=== PATIENT | male | born 1940 | race Hispanic/Latino ===

== ENCOUNTER → 2018-04-16 | Day surgery (SDC) | payer OTHER ==
[2018-04-08 15:20] LABS: BASOPHILS # (AUTO) 0.1 (0.0-0.1); BASOPHILS % 0.6 % (0.0-1.0); EOSINOPHILS # (AUTO) 0.2 (0.0-0.4); EOSINOPHILS % 2.6 % (0.0-6.0); HEMATOCRIT 44.8 % (38.2-49.6); HEMOGLOBIN 14.7 g/dL (14.0-18.0); LYMPHOCYTES # (AUTO) 1.9 (1.0-3.2); LYMPHOCYTES % 22.6 % (18.0-39.1); MEAN CORPUSCULAR HEMOGLOBIN 29.8 pg (28-32); MEAN CORPUSCULAR HGB CONC 32.8 g/dL (31-35); MEAN CORPUSCULAR VOLUME 90.7 fL (81-99); MONOCYTES # (AUTO) 0.7 (0.2-0.8); MONOCYTES % 8.3 % (4.4-11.3); NEUTROPHILS # (AUTO) 5.4 (2.1-6.9); NEUTROPHILS % 65.5 % (38.7-80.0); PLATELET COUNT 213 x10e3/uL (140-360); RED BLOOD COUNT 4.94 x10e6/uL (4.3-5.7); RED CELL DISTRIBUTION WIDTH 12.5 % (11.7-14.4)
[2018-04-08 15:33] LABS: ANION GAP 12.5 mmol/L (8-16); BLOOD UREA NITROGEN 25 mg/dL (7-26); BUN/CREATININE RATIO 22 (6-25); CALCIUM 10.7 mg/dL (8.4-10.2); CARBON DIOXIDE 29 mmol/L (22-29); CHLORIDE 106 mmol/L (98-107); CREATININE, SERUM 1.16 mg/dL (0.72-1.25); EST GLOMERULAR FILTRATION RATE > 60 ML/MIN (60-); GLUCOSE 99 mg/dL (74-118); POTASSIUM 5.5 mmol/L (3.5-5.1); SODIUM 142 mmol/L (136-145)
[~2018-04-16] MED LIST: ASPIR 8181 MG PO; ATORVASTATIN CA20 MG PO; CHONDR SU A NA/HYALUR SOD 1 EACH KIT IO ONE; CYCLOPENTOLATE HCL 2% OPTH SOLN 2 ML BTL OP ONE; EPINEPHRINE HCL INJ 1 MG/ML AMP ONE; FENTANYL CITRATE/PF 100MCG/2 ML INJ ONE; FINASTERIDE5 MG PO; GATIFLOXACIN(OPTH) 5 ML LIQD ONE; LIDOCAINE 2%/ EPINEPHRINE 20ML MDV ONE; LIDOCAINE HCL-PF 4% 40 MG/1 ML 5ML AMP ONE; METOPROLOL SUCC25 MG PO; MIDAZOLAM HCL 2 MG/2 ML VIAL ONE; PHENYLEPHRINE HCL 2 ML DROPS ONE; PILOCARPINE HCL(OPTH) 15 ML LIQD ONE; POVIDONE IODINE 5% (OPTH) 30 ML BTL ONE; PROPOFOL IV EMULSION 10 MG/ML 20 ML VIAL ONE; TOBRAMYCIN/DEXAMETHASONE(OPTH) 3.5 GM TUBE ONE; ZESTRIL20 MG PO
--- OUTSIDE RECORDS SUMMARY | 2018-04-16 05:48 | XMS REPORT | Continuity of Care Document ---
Author Author [facility] Interface Address Unknown Phone Unavailable Problems Problem Status Onset Date Classification Date Reported Comments Source Idiopathic gout, left ankle and foot 06/05/2017 09/06/2017 [facility] Acute gout 05/31/2017 09/06/2017 [facility] GOUT Active 05/31/2017 [facility] Discharge Diagnosis: Gout attack 04/25/2016 04/28/2016 [facility] FOOT PAIN Active 04/25/2016 [facility] Discharge Diagnosis: Low back pain 11/25/2015 11/28/2015 [facility] BACK PAIN Active 11/25/2015 [facility] Discharge Diagnosis: Acute gout 10/25/2015 10/28/2015 [facility] LEG PAIN Active 10/25/2015 [facility] Discharge Diagnosis: Sciatica 09/10/2014 09/13/2014 [facility] HIP PAIN Active 09/10/2014 [facility] Body mass index 30+ - obesity<sup>4</sup> Active 10/05/2013 Problem 11/04/2017 Data migrated from [employer] on 10/01/14. [facility] Tobacco user<sup>9</sup> Active 10/05/2013 Problem 04/28/2016 Data migrated from [employer] on 10/01/14. [facility] Discharge Diagnosis: allergic reaction 07/25/2013 07/27/2013 [facility] ITCHING Active 07/25/2013 [facility] Raised prostate specific antigen<sup>8</sup> Active 06/08/2013 Problem 11/04/2017 Data migrated from [employer] on 10/01/14. [facility] Acute upper respiratory infection<sup>1, 2</sup> Resolved 05/25/2013 Problem 11/04/2017 Data migrated from [employer] on 11/18/14. [facility] Benign essential hypertension<sup>3</sup> Active 05/25/2013 Problem 11/04/2017 Data migrated from [employer] on 10/01/14. [facility] Chronic constipation<sup>5</sup> Active 05/25/2013 Problem 11/04/2017 Data migrated from [facility] on 10/01/14. [facility] Gout Active Problem 11/04/2017 [facility] H/O: gastrointestinal disease<sup>6, 7</sup> Resolved Problem 11/04/2017 Data migrated from [facility] on 11/18/14. [facility] Hyperlipidemia Active Problem 11/04/2017 [facility] Hypertension Resolved Problem 11/04/2017 [facility] Injury of left toe Active Problem 11/04/2017 [facility] Knee pain Active Problem 11/04/2017 [facility] Osteoarthritis Active Problem 11/04/2017 [facility] Diabetes mellitus type 2, controlled Active Problem 11/04/2017 [facility] Prediabetes Active Problem 11/28/2015 [facility] Underdosing of drugs affecting uric acid metabolism, initial encounter 09/06/2017 [facility] Patient's intentional underdosing of medication regimen for other reason 09/06/2017 [facility] Essential hypertension 09/06/2017 [facility] Type 2 diabetes mellitus without complications 09/06/2017 [facility] Medications Medication Details Route Status Patient Instructions Ordering Provider Order Date Source [employer] ULTRA THIN LANCETS 30G See Instructions, # 100 unknown unit, Refill(s) 11, USE DIRECTED, [id number] Active 07/01/2017 [facility] predniSONE 20 mg oral tablet See Special Instructions, PO, Daily, 4 day regimen: Day 1 - 40 mg (2 tabs) Day 2 - 30 mg (1 1/2 tabs) Day 3 - 20 mg (1 tab) Day 4 - 10 mg (1/2 tab), X 4 day, # 6 tab, 0 Refill(s) No Longer Active 05/31/2017 [facility] Motrin 600 mg oral tablet 600 mg=1 tab, PO, Q6H, PRN Pain, take with food, # 30 tab, 0 Refill(s) No Longer Active 05/31/2017 [facility] Acetaminophen 300 MG / Codeine Phosphate 30 MG Oral Tablet [Tylenol with Codeine #3] 1 tab, PO, Q6H, PRN Pain, X 5 day, # 19 tab, 0 Refill(s) No Longer Active 05/31/2017 [facility] Acetaminophen 325 MG / Hydrocodone Bitartrate 10 MG Oral Tablet [Walker 10/325] 1 tab, Route: PO, Drug Form: TAB, Dosing Weight 78.182, kg, ONCE, STAT, Start date: 05/31/17 11:18:00 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 (Same as: Walker 325/10) Inactive 05/31/2017 [facility] Acetaminophen 325 MG / Hydrocodone Bitartrate 10 MG Oral Tablet [Walker 10/325] 1 tab, Route: PO, Drug Form: TAB, Dosing Weight 78.182, kg, ONCE, STAT, Start date: 05/31/17 11:16:00 LOCOMOTIVE OPERATOR HELPER, Stop date: 05/31/17 11:16:00 LOCOMOTIVE OPERATOR HELPER Inactive 05/31/2017 [facility] pantoprazole 40 mg oral enteric coated tablet 40 mg=1 tab, PO, Daily, # 90 tab, 1 Refill(s), Pharmacy: [facility] [id number] Active 05/02/2017 [facility] allopurinol 100 mg oral tablet 100 mg=1 tab, PO, Daily, # 90 tab, 1 Refill(s), Pharmacy: [facility] [id number] Active 04/30/2017 [facility] Metoprolol Tartrate 25 mg oral tablet See Instructions, TAKE 1/2 TABLET BY MOUTH TWICE DAILY, # 90 tab, 1 Refill(s), [facility] [id number] Active 04/30/2017 [facility] lisinopril 20 mg oral tablet See Instructions, TAKE 1 TABLET BY MOUTH DAILY, # 90 tab, 1 Refill(s), Pharmacy: [facility] [id number] Inactive 04/30/2017 [facility] Esomeprazole 20 MG Enteric Coated Capsule 20 mg=1 cap, PO, BID, # 60 cap, 1 Refill(s), [facility] [id number] Active 04/30/2017 [facility] Acetaminophen 325 MG / Hydrocodone Bitartrate 5 MG Oral Tablet [Walker 5/325] 1 tab, PO, Q6H, PRN Pain, X 3 day, # 12 tab, 0 Refill(s) Active 04/26/2016 [facility] naproxen 375 mg oral enteric coated delayed-release tablet 375 mg=1 tab, PO, BID, PRN as needed for pain, X 5 day, # 10 tab, 0 Refill(s), Pharmacy: [facility] [id number] Active 04/26/2016 [facility] Acetaminophen 325 MG / Hydrocodone Bitartrate 5 MG Oral Tablet 1 tab, Route: PO, Drug Form: TAB, Dosing Weight 76.818, kg, ONCE, STAT, Start date: 04/25/16 19:37:00 LOCOMOTIVE OPERATOR HELPER, Stop date: 04/25/16 19:37:00 CSTNotes: (Same as: Walker 325/5) Do not exceed 4gm/day of acetaminophen. Inactive 04/26/2016 [facility] Solu-Medrol 40 mg, Route: IM, ONCE, Dosing Weight 78.636, kg, Start date: 11/25/15 14:00:00 CDT, Stop date: 11/25/15 14:00:00 CDT Inactive 11/25/2015 [facility] predniSONE 20 mg oral tablet 20 mg=1 tab, PO, Daily, X 7 day, # 7 tab, 0 Refill(s), Pharmacy: [facility] [id number] Active 11/25/2015 [facility] Saline Flush 0.9% 10 mL, Route: IVP, Drug Form: INJ, Dosing Weight 78.636, kg, PRN, PRN Line Flush, Start date: 11/25/15 11:33:00 CDT, Duration: 30 day, Stop date: 12/25/15 11:32:00 CDTNotes: (Same as: BD Posiflush) Inactive 11/25/2015 [facility] predniSONE 20 mg oral tablet See Special Instructions, PO, Daily, 6 day regimen: Days 1-3 - 40 mg (2 tabs) daily Days 4-6 - 20 mg (1 tabs) daily with food, X 6 day, # 9 tab, 0 Refill(s), Pharmacy: [facility] [id number] Active 10/25/2015 [facility] Acetaminophen 325 MG / Hydrocodone Bitartrate 5 MG Oral Tablet [Walker 5/325] 1 tab, PO, Q4H, PRN for pain, X 5 day, # 15 tab, 0 Refill(s) Active 10/25/2015 [facility] Ibuprofen 600 mg, 3 tab, Route: PO, Drug form: TAB, ONCE, Dosing Weight 78.636, kg, Priority: STAT, Start date: 10/25/15 17:21:00 CDT, Stop date: 10/25/15 17:21:00 CDTNotes: (Same as: Advil) Give with food. Inactive 10/25/2015 [facility] Solu-Medrol 125 mg, 2 mL, Route: IVP, Drug form: INJ, ONCE, Dosing Weight 78.636, kg, Priority: STAT, Start date: 10/25/15 17:21:00 CDT, Stop date: 10/25/15 17:21:00 CDTNotes: (Same as:Solu-MEDROL, A-Methapred) Inactive 10/25/2015 [facility] tramadol hydrochloride 50 MG Oral Tablet 50 mg=1 tab, PO, Q6H, PRN Pain, X 10 day, # 40 tab, 0 Refill(s) Active 09/10/2014 [facility] Ativan 2 mg, Route: IVP, Drug form: INJ, ONCE, Dosing Weight 78.636, kg, Priority: STAT, Start date: 07/25/13 6:04:00, Stop date: 07/25/13 6:04:00 Inactive 07/25/2013 [facility] Depo-Medrol 80 mg, 1 mL, Route: IM, Drug form: SUSP, ONCE, Dosing Weight 78.636, kg, Start date: 07/25/13 5:20:00, Stop date: 07/25/13 5:20:00(methylprednisolone acetate 80 mg/1 ml INJ VL) (Same as:Depo-Medrol) For IM use only. Inactive 07/25/2013 [facility] hydrOXYzine hydrochloride 50 mg, 1 mL, Route: IM, Drug form: INJ, ONCE, Dosing Weight 78.636, kg, Start date: 07/25/13 4:18:00, Stop date: 07/25/13 4:18:00(Same as: Vistaril) Inactive 07/25/2013 [facility] Walker 5/325 oral tablet 1 tab, PO, Q6H, PRN, 15 tab, for pain, Substitution Allowed, Maintenance, TAB PO Active Giovani 01/04/2012 [facility] acetaminophen-hydrocodone 325 mg-5 mg oral tablet 1 tab, Route: PO, Drug Form: TAB, kg, ONCE, STAT, Start date: 01/04/12 15:24:00, Stop date: 01/04/12 15:24:00 PO No Longer Active Giovani 01/04/2012 [facility] tetanus-diphtheria toxoids 0.5 ml, Route: IM, ONCE, Start date: 11/15/09 12:57:00, Stop date: 11/15/09 12:57:00 IM No Longer Active [facility] 11/15/2009 [facility] Allergies, Adverse Reactions, Alerts Substance Category Reaction Severity Reaction type Status Date Reported Comments Source Immunizations Immunization Date Given Site Status Last Updated Comments Source influenza virus vaccine, inactivated<sup>1</sup> 01/22/2017 Left Deltoid completed [facility] Result Comment: Patient waited in room for 10 m ins, no allergic reaction. [facility] influenza virus vaccine, inactivated 01/25/2015 Left Deltoid completed Car[facility] Hx influenza vaccine-unspecified<sup>3</sup> 01/17/2014 completed GE Result Comment: done high dose. Migrated from OBS ; Data migrated from [employer] on 06/06/2015. [facility] Hx influenza vaccine-unspecified<sup>1</sup> 01/17/2014 completed [facility] Result Comment: done high dose. Migrated from OBS ; Data migrated from [facility] [employer] on 06/06/2015. [facility] influenza virus vaccine, inactivated<sup>2</sup> 01/17/2014 Left Deltoid completed GE Result Comment: fluzone high dose [[id number]]. Migrated from OBS ; Data migrated from [employer] on 06/06/2015. [facility] pneumococcal 23-valent vaccine<sup>4</sup> 05/25/2013 Right Deltoid completed GE Result Comment: pneumovax 23 [[id number]]. Migrated from OBS VIS: Pneumovax 23: 02-07-09 ; Data migrated from [employer] on 06/06/2015. [facility] pneumococcal 23-valent vaccine<sup>3</sup> 05/25/2013 Right Deltoid completed GE Result Comment: pneumovax 23 [cvx33]. Migrated from OBS VIS: Pneumovax 23: 09 ; Data migrated from [facility] on 06/06/2015. [facility] tetanus-diphtheria toxoids 11/15/2009 completed [facility] tetanus-diphtheria toxoids 11/15/2009 Right deltoid completed [facility] Results Order Name Results Value Reference Range Date Interpretation Comments Source CHEM PANEL Globulin 3.3 g/dL 2.7 - 4.2 05/31/2017 [facility] CHEM PANEL A/G Ratio 1.0 0.7 - 1.6 05/31/2017 [facility] CHEM PANEL B/C Ratio 16 6 - 25 05/31/2017 [facility] CHEM PANEL AGAP 13.1 meq/L 10.0 - 20.0 05/31/2017 [facility] CHEM PANEL Bili Total 0.6 mg/dL 0.2 - 1.3 05/31/2017 [facility] CHEM [facility] Alk Phos 80 unit/L 39 - 136 05/31/2017 [facility] CHEM PANEL AST 10 unit/L 0 - 37 05/31/2017 [facility] CHEM PANEL eGFR 62 mL/min/1.73m2 05/31/2017 Result Comment: The eGFR is calculated using the CKD-EPI formula. In most young, healthy individuals the eGFR will be >90 mL/min/1.73m2. The eGFR declines with age. An eGFR of 60-89 may be normal in some populations, particularly the elderly, for whom the CKD-EPI formula has not been extensively validated. Use of the eGFR is not recommended in the following populations: Individuals with unstable creatinine concentrations, including patients and those with serious co-morbid conditions. Patients with extremes in muscle mass or diet. The data above are obtained from the National Kidney Disease Education Program (NKDEP) which additionally recommends that when the eGFR is used in patients with extremes of body mass index for purposes of drug dosing, the eGFR should be multiplied by the estimated BMI. [facility] CHEM PANEL Creatinine Lvl 1.13 mg/dL 0.50 - 1.40 05/31/2017 [facility] CHEM PANEL BUN 18 mg/dL 7 - 22 05/31/2017 [facility] CHEM PANEL Glucose Lvl 195 mg/dL 70 - 99 05/31/2017 [facility] CHEM PANEL Chloride Lvl 104 meq/L 95 - 109 05/31/2017 [facility] CHEM PANEL Potassium Lvl 4.1 meq/L 3.5 - 5.1 05/31/2017 [facility] CHEM PANEL Sodium Lvl 138 meq/L 135 - 145 05/31/2017 [facility] CHEM PANEL ALT 14 unit/L 0 - 65 05/31/2017 [facility] CHEM PANEL Albumin Lvl 3.4 g/dL 3.5 - 5.0 05/31/2017 [facility] CHEM PANEL Calcium Lvl 8.9 mg/dL 8.5 - 10.5 05/31/2017 [facility] CHEM PANEL Total Protein 6.7 g/dL 6.4 - 8.4 05/31/2017 [facility] CHEM PANEL CO2 25 meq/L 24 - 32 05/31/2017 [facility] HEMATOLOGY MPV 9.7 fL 7.4 - 10.4 05/31/2017 [facility] Platelet 185 K/CMM 133 - 450 05/31/2017 [facility] RDW 13.5 % 11.5 - 14.5 05/31/2017 [facility] MCHC 33.9 g/dL 32.0 - 36.0 05/31/2017 [facility] MCH 30.2 pg 27.0 - 31.0 05/31/2017 [facility] MCV 89.0 fL 80.0 - 94.0 05/31/2017 [facility] Hct 39.4 % 42.0 - 54.0 05/31/2017 [facility] Hgb 13.3 g/dL 14.0 - 18.0 05/31/2017 [facility] RBC 4.42 M/CMM 4.70 - 6.10 05/31/2017 [facility] WBC 7.2 K/CMM 3.7 - 10.4 05/31/2017 [facility] Basophils # 0.1 K/CMM 0.0 - 0.2 05/31/2017 [facility] HEMATOLOGY Eosinophils # 0.3 K/CMM 0.0 - 0.5 05/31/2017 [facility] Monocytes # 0.6 K/CMM 0.0 - 0.8 05/31/2017 [facility] Lymphocytes # 1.3 K/CMM 1.0 - 5.5 05/31/2017 [facility] HEMATOLOGY Eosinophils 4.5 % 0.0 - 4.0 05/31/2017 [facility] Monocytes 8.5 % 2.0 - 12.0 05/31/2017 [facility] HEMATOLOGY Segs-Bands # 4.9 K/CMM 1.5 - 8.1 05/31/2017 [facility] HEMATOLOGY Basophils 0.9 % 0.0 - 1.0 05/31/2017 [facility] HEMATOLOGY Lymphocytes 17.5 % 20.0 - 40.0 05/31/2017 [facility] HEMATOLOGY Segs 68.6 % 45.0 - 75.0 05/31/2017 [facility] Foot series DX Foot series DX Patient Name: DANIEL MARSHALL : 1940; Age: 77 years y/o Male MR: [id number] Study: Foot series DX 05/31/2017 11:54 AM 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 Subjacent small punched out erosions within the head of the first metatarsal are also present. Findings are compatible with gouty arthritis. There is no additional fracture, subluxation or lesion evident. SL: [id number] 05/31/2017 - - Read by: Sergei Trammell MD Dictated Date/time: 05/31/17 12:15 Electronically Signed by: Sergei Trammell MD 05/31/17 12:16 FINAL REPORT [facility] CHEM PANEL Glucose Lvl 101 mg/dL 70 - 99 04/26/2016 [facility] CHEM PANEL Sodium Lvl 138 meq/L 135 - 145 04/26/2016 [facility] CHEM PANEL Creatinine Lvl 1.10 mg/dL 0.50 - 1.40 04/26/2016 [facility] CHEM PANEL BUN 26 mg/dL 7 - 22 04/26/2016 [facility] CHEM PANEL Potassium Lvl 4.0 meq/L 3.5 - 5.1 04/26/2016 [facility] CHEM PANEL Calcium Lvl 9.9 mg/dL 8.5 - 10.5 04/26/2016 [facility] CHEM PANEL CO2 23 meq/L 24 - 32 04/26/2016 [facility] CHEM PANEL Chloride Lvl 103 meq/L 95 - 109 04/26/2016 [facility] CHEM PANEL eGFR 65 mL/min/1.73m2 04/26/2016 Result Comment: The eGFR is calculated using the CKD-EPI formula. In most young, healthy individuals the eGFR will be >90 mL/min/1.73m2. The eGFR declines with age. An eGFR of 60-89 may be normal in some populations, particularly the elderly, for whom the CKD-EPI formula has not been extensively validated. Use of the eGFR is not recommended in the following populations: Individuals with unstable creatinine concentrations, including patients and those with serious co-morbid conditions. Patients with extremes in muscle mass or diet. The data above are obtained from the National Kidney Disease Education Program (NKDEP) which additionally recommends that when the eGFR is used in patients with extremes of body mass index for purposes of drug dosing, the eGFR should be multiplied by the estimated BMI. [facility] CHEM PANEL AGAP 16.0 meq/L 10.0 - 20.0 04/26/2016 [facility] CHEM PANEL Uric Acid 6.4 mg/dL 3.8 - 8.0 04/26/2016 [facility] Basophils 0.7 % 0.0 - 1.0 04/26/2016 [facility] Segs 80.8 % 45.0 - 75.0 04/26/2016 [facility] Lymphocytes 9.6 % 20.0 - 40.0 04/26/2016 [facility] Monocytes 7.4 % 2.0 - 12.0 04/26/2016 [facility] Eosinophils 1.5 % 0.0 - 4.0 04/26/2016 [facility] Segs-Bands # 10.2 K/CMM 1.5 - 8.1 04/26/2016 [facility] Lymphocytes # 1.2 K/CMM 1.0 - 5.5 04/26/2016 [facility] Monocytes # 0.9 K/CMM 0.0 - 0.8 04/26/2016 [facility] Eosinophils # 0.2 K/CMM 0.0 - 0.5 04/26/2016 [facility] Basophils # 0.1 K/CMM 0.0 - 0.2 04/26/2016 [facility] Platelet 182 K/CMM 133 - 450 04/26/2016 [facility] MPV 9.7 fL 7.4 - 10.4 04/26/2016 [facility] MCH 28.9 pg 27.0 - 31.0 04/26/2016 [facility] MCHC 33.4 g/dL 32.0 - 36.0 04/26/2016 [facility] RDW 13.4 % 11.5 - 14.5 04/26/2016 [facility] WBC 12.6 K/CMM 3.7 - 10.4 04/26/2016 [facility] HEMATOLOGY RBC 5.14 M/CMM 4.70 - 6.10 04/26/2016 [facility] HEMATOLOGY Hgb 14.8 g/dL 14.0 - 18.0 04/26/2016 [facility] HEMATOLOGY Hct 44.4 % 42.0 - 54.0 04/26/2016 [facility] HEMATOLOGY MCV 86.4 fL 80.0 - 94.0 04/26/2016 [facility] Ankle 3 views DX Ankle 3 views DX Study: 3 views of left ankle joint History: Left ankle pain. History of gout Comments: Normal bone mineralization. No joint space narrowing, osteophytes or erosive changes ankle joint. No acute fracture or dislocation. No radiopaque foreign bodies. IMPRESSION: No arthritic changes No acute fracture or dislocation. 04/25/2016 - - Read by: Gila Boyle MD Dictated Date/time: 04/25/16 18:55 Electronically Signed by: Gila Boyle MD 04/25/16 18:58 FINAL REPORT [facility] CARDIAC ENZYMES CK MB Index 2.2 0.0 - 2.5 11/25/2015 [facility] CARDIAC ENZYMES Troponin-I null 0.00 - 0.40 11/25/2015 [facility] CARDIAC ENZYMES Total CK 106 unit/L 12 - 191 11/25/2015 [facility] CARDIAC ENZYMES CK MB 2.3 ng/mL 0.5 - 3.6 11/25/2015 [facility] CARDIAC ENZYMES BNP 82 pg/mL <=100 pg/mL 11/25/2015 [facility] CHEM PANEL Magnesium Lvl 2.4 mg/dL 1.8 - 2.4 11/25/2015 [facility] ELECTROLYTES Potassium Lvl 4.4 meq/L 3.5 - 5.1 11/25/2015 [facility] ELECTROLYTES Chloride Lvl 103 meq/L 95 - 109 11/25/2015 [facility] ELECTROLYTES Glucose Lvl 151 mg/dL 70 - 99 11/25/2015 [facility] ELECTROLYTES Creatinine Lvl 1.57 mg/dL 0.50 - 1.40 11/25/2015 [facility] ELECTROLYTES Sodium Lvl 136 meq/L 135 - 145 11/25/2015 [facility] ELECTROLYTES BUN 32 mg/dL 7 - 22 11/25/2015 [facility] ELECTROLYTES Globulin 3.5 g/dL 2.0 - 4.0 11/25/2015 [facility] ELECTROLYTES A/G Ratio 1.0 0.7 - 1.6 11/25/2015 [facility] ELECTROLYTES eGFR 42 mL/min/1.73m2 11/25/2015 Result Comment: The eGFR is calculated using the CKD-EPI formula. In most young, healthy individuals the eGFR will be >90 mL/min/1.73m2. The eGFR declines with age. An eGFR of 60-89 may be normal in some populations, particularly the elderly, for whom the CKD-EPI formula has not been extensively validated. Use of the eGFR is not recommended in the following populations: Individuals with unstable creatinine concentrations, including patients and those with serious co-morbid conditions. Patients with extremes in muscle mass or diet. The data above are obtained from the National Kidney Disease Education Program (NKDEP) which additionally recommends that when the eGFR is used in patients with extremes of body mass index for purposes of drug dosing, the eGFR should be multiplied by the estimated BMI. [facility] ELECTROLYTES B/C Ratio 20 6 - 25 11/25/2015 [facility] ELECTROLYTES Bili Total 0.1 mg/dL 0.2 - 1.3 11/25/2015 [facility] ELECTROLYTES AGAP 12.4 meq/L 10.0 - 20.0 11/25/2015 [facility] ELECTROLYTES AST 17 unit/L 0 - 37 11/25/2015 [facility] ELECTROLYTES Alk Phos 61 unit/L 39 - 136 11/25/2015 [facility] ELECTROLYTES ALT 29 unit/L 0 - 65 11/25/2015 [facility] ELECTROLYTES Total Protein 6.9 g/dL 6.4 - 8.4 11/25/2015 [facility] ELECTROLYTES Albumin Lvl 3.4 g/dL 3.5 - 5.0 11/25/2015 [facility] ELECTROLYTES CO2 25 meq/L 24 - 32 11/25/2015 [facility] ELECTROLYTES Calcium Lvl 9.0 mg/dL 8.5 - 10.5 11/25/2015 [facility] HEMATOLOGY Basophils # 0.1 K/CMM 0.0 - 0.2 11/25/2015 [facility] HEMATOLOGY Basophils 1.2 % 0.0 - 1.0 11/25/2015 [facility] HEMATOLOGY Eosinophils 1.7 % 0.0 - 4.0 11/25/2015 [facility] HEMATOLOGY Monocytes 7.3 % 2.0 - 12.0 11/25/2015 [facility] HEMATOLOGY Lymphocytes 17.2 % 20.0 - 40.0 11/25/2015 [facility] HEMATOLOGY Segs 72.6 % 45.0 - 75.0 11/25/2015 [facility] HEMATOLOGY Lymphocytes # 1.1 K/CMM 1.0 - 5.5 11/25/2015 [facility] HEMATOLOGY Monocytes # 0.5 K/CMM 0.0 - 0.8 11/25/2015 [facility] HEMATOLOGY Segs-Bands # 4.9 K/CMM 1.5 - 8.1 11/25/2015 [facility] HEMATOLOGY Eosinophils # 0.1 K/CMM 0.0 - 0.5 11/25/2015 [facility] HEMATOLOGY PTT 28.8 s 22.9 - 35.8 11/25/2015 [facility] Hct 38.7 % 42.0 - 54.0 11/25/2015 [facility] Hgb 12.8 g/dL 14.0 - 18.0 11/25/2015 [facility] MPV 8.3 fL 7.4 - 10.4 11/25/2015 [facility] Platelet 303 K/CMM 133 - 450 11/25/2015 [facility] RDW 13.8 % 11.5 - 14.5 11/25/2015 [facility] MCHC 33.1 g/dL 32.0 - 36.0 11/25/2015 [facility] MCH 28.5 pg 27.0 - 31.0 11/25/2015 [facility] MCV 85.9 fL 80.0 - 94.0 11/25/2015 [facility] WBC 6.7 K/CMM 3.7 - 10.4 11/25/2015 [facility] RBC 4.51 M/CMM 4.70 - 6.10 11/25/2015 [facility] Sed Rate 17 mm/h 0 - 15 11/25/2015 [facility] URINE AND STOOL UA Urobilinogen <=1.0 mg/dL 0.1 - 1.0 11/25/2015 [facility] URINE AND STOOL UA Nitrite Negative (11/25/15 11:38 AM) Negative 11/25/2015 [facility] URINE AND STOOL UA Leuk Est Negative (11/25/15 11:38 AM) Negative 11/25/2015 [facility] URINE AND STOOL UA Sq Epi Occasional /LPF Few /LPF 11/25/2015 [facility] URINE AND STOOL UA WBC null 0 - 5 11/25/2015 [facility] URINE AND STOOL UA Blood Negative (11/25/15 11:38 AM) Negative 11/25/2015 [facility] URINE AND STOOL UA Protein Negative mg/dL Negative mg/dL 11/25/2015 [facility] URINE AND STOOL UA Glucose Negative mg/dL Negative mg/dL 11/25/2015 [facility] URINE AND STOOL UA Ketones Negative mg/dL Negative mg/dL 11/25/2015 [facility] URINE AND STOOL UA Bili Negative *NA* (11/25/15 11:38 AM) Negative 11/25/2015 [facility] URINE AND STOOL UA Spec Grav 1.014 <=1.030 11/25/2015 [facility] URINE AND STOOL UA pH 5.0 5.0 - 8.0 11/25/2015 [facility] URINE AND STOOL UA Color Yellow *NA* (11/25/15 11:38 AM) Yellow 11/25/2015 [facility] URINE AND STOOL UA Turbidity Clear (11/25/15 11:38 AM) Clear 11/25/2015 [facility] URINE AND STOOL UA RBC 1 /HPF 0 - 2 11/25/2015 [facility] Chest 1view DX Chest 1view DX Study: Chest 1view DX Clinical Indication: Chest pain Comparison: Chest x-ray from 01/04/2012 FINDINGS: The cardiac silhouette is normal in size. The lungs are clear and without consolidation or congestion. No pleural effusion or pneumothorax is seen. Aortic arch calcification is seen with tortuosity of the descending thoracic aorta. Chronic healed right-sided rib fractures are identified. IMPRESSION: No acute cardiopulmonary disease. SL: [id number] 11/25/2015 - - Read by: Marcus Bradley MD Dictated Date/time: 11/25/15 11:55 Electronically Signed by: Marcus Bradley MD 11/25/15 11:55 FINAL REPORT [facility] Spine lumbar 2 or 3 views DX Spine lumbar 2 or 3 views DX Study: Lumbar spine, 3 views Clinical Indication: Backache Comparison: None FINDINGS: Multiple views of the lumbar spine show 5 nonrib-bearing lumbar vertebra. No acute compression fracture or subluxation is seen. Mild dextroscoliotic convex curvature of the lumbar spine is seen. Severe multilevel degenerative disc disease throughout the lumbar spine is seen with severe disc height loss, vacuum disc phenomenon, and marginal osteophytes. Advanced facet arthrosis throughout the lumbar spine is also seen. IMPRESSION: Severe multilevel degenerative changes of the lumbar spine without acute bony abnormality. SL: [id number] 11/25/2015 - - Read by: Marcus Bradley MD Dictated Date/time: 11/25/15 11:46 Electronically Signed by: Marcus Bradley MD 11/25/15 11:47 FINAL REPORT [facility] CHEM PANEL Uric Acid 6.7 mg/dL 3.8 - 8.0 10/25/2015 [facility] ELECTROLYTES CO2 25 meq/L 24 - 32 10/25/2015 [facility] ELECTROLYTES Glucose Lvl 86 mg/dL 70 - 99 10/25/2015 [facility] ELECTROLYTES Creatinine Lvl 1.31 mg/dL 0.50 - 1.40 10/25/2015 [facility] ELECTROLYTES BUN 21 mg/dL 7 - 22 10/25/2015 [facility] ELECTROLYTES Chloride Lvl 103 meq/L 95 - 109 10/25/2015 [facility] ELECTROLYTES Total Protein 7.5 g/dL 6.4 - 8.4 10/25/2015 [facility] ELECTROLYTES Sodium Lvl 136 meq/L 135 - 145 10/25/2015 [facility] ELECTROLYTES Calcium Lvl 9.4 mg/dL 8.5 - 10.5 10/25/2015 [facility] ELECTROLYTES Potassium Lvl 4.1 meq/L 3.5 - 5.1 10/25/2015 [facility] ELECTROLYTES eGFR 53 mL/min/1.73m2 10/25/2015 Result Comment: The eGFR is calculated using the CKD-EPI formula. In most young, healthy individuals the eGFR will be >90 mL/min/1.73m2. The eGFR declines with age. An eGFR of 60-89 may be normal in some populations, particularly the elderly, for whom the CKD-EPI formula has not been extensively validated. Use of the eGFR is not recommended in the following populations: Individuals with unstable creatinine concentrations, including patients and those with serious co-morbid conditions. Patients with extremes in muscle mass or diet. The data above are obtained from the National Kidney Disease Education Program (NKDEP) which additionally recommends that when the eGFR is used in patients with extremes of body mass index for purposes of drug dosing, the eGFR should be multiplied by the estimated BMI. [facility] ELECTROLYTES Alk Phos 80 unit/L 39 - 136 10/25/2015 [facility] ELECTROLYTES Albumin Lvl 3.9 g/dL 3.5 - 5.0 10/25/2015 [facility] ELECTROLYTES ALT 17 unit/L 0 - 65 10/25/2015 [facility] ELECTROLYTES AST 11 unit/L 0 - 37 10/25/2015 [facility] ELECTROLYTES Bili Total 0.6 mg/dL 0.2 - 1.3 10/25/2015 [facility] ELECTROLYTES A/G Ratio 1.1 0.7 - 1.6 10/25/2015 [facility] ELECTROLYTES AGAP 12.1 meq/L 10.0 - 20.0 10/25/2015 [facility] ELECTROLYTES B/C Ratio 16 6 - 25 10/25/2015 [facility] ELECTROLYTES Globulin 3.6 g/dL 2.0 - 4.0 10/25/2015 [facility] HEMATOLOGY Sed Rate 37 mm/h 0 - 15 10/25/2015 [facility] HEMATOLOGY MPV 9.8 fL 7.4 - 10.4 10/25/2015 [facility] WBC 7.9 K/CMM 3.7 - 10.4 10/25/2015 [facility] Hgb 13.7 g/dL 14.0 - 18.0 10/25/2015 [facility] RBC 4.77 M/CMM 4.70 - 6.10 10/25/2015 [facility] MCH 28.8 pg 27.0 - 31.0 10/25/2015 [facility] HEMATOLOGY MCV 87.2 fL 80.0 - 94.0 10/25/2015 [facility] HEMATOLOGY Hct 41.6 % 42.0 - 54.0 10/25/2015 [facility] HEMATOLOGY RDW 14.0 % 11.5 - 14.5 10/25/2015 [facility] Platelet 178 K/CMM 133 - 450 10/25/2015 [facility] MCHC 33.0 g/dL 32.0 - 36.0 10/25/2015 [facility] Eosinophils # 0.3 K/CMM 0.0 - 0.5 10/25/2015 [facility] HEMATOLOGY Monocytes # 0.8 K/CMM 0.0 - 0.8 10/25/2015 [facility] HEMATOLOGY Lymphocytes # 1.6 K/CMM 1.0 - 5.5 10/25/2015 [facility] HEMATOLOGY Segs-Bands # 5.1 K/CMM 1.5 - 8.1 10/25/2015 [facility] HEMATOLOGY Basophils 0.8 % 0.0 - 1.0 10/25/2015 [facility] HEMATOLOGY Eosinophils 3.9 % 0.0 - 4.0 10/25/2015 [facility] HEMATOLOGY Basophils # 0.1 K/CMM 0.0 - 0.2 10/25/2015 [facility] HEMATOLOGY Monocytes 10.2 % 2.0 - 12.0 10/25/2015 [facility] HEMATOLOGY Lymphocytes 20.2 % 20.0 - 40.0 10/25/2015 [facility] HEMATOLOGY Segs 64.9 % 45.0 - 75.0 10/25/2015 [facility] Hip 2 views DX Hip 2 views DX HISTORY: Right hip pain. RIGHT HIP 2 VIEWS: There are degenerative changes in the acetabulum. No fracture subluxation or lesion is otherwise evident about the right hip. 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 SL:13 09/10/2014 - - Read by: Sergei Trammell MD Dictated Date/time: 09/10/14 16:34 Electronically Signed by: Sergei Trammell MD 09/10/14 16:35 FINAL REPORT [facility] Vital Signs Vital Sign Value Date Comments Source Heart Rate 77 05/31/2017 [facility] Temperature Oral (F) 98.0 F 05/31/2017 [facility] Systolic (mm Hg) 138 05/31/2017 [facility] Respitory Rate 15 05/31/2017 [facility] Diastolic (mm Hg) 77 05/31/2017 [facility] Weight 78.182 05/31/2017 [facility] Height 167.64 cm 05/31/2017 [facility] BMI Calculated 27.82 05/31/2017 [facility] Systolic (mm Hg) 137 05/31/2017 [facility] Diastolic (mm Hg) 67 05/31/2017 [facility] Temperature Oral (F) 98.0 F 05/31/2017 [facility] Respitory Rate 16 05/31/2017 [facility] Heart Rate 73 05/31/2017 [facility] Weight 77.727 04/30/2017 [facility] BMI Calculated 27.66 04/30/2017 [facility] Height 167.64 cm 04/30/2017 [facility] Systolic (mm Hg) 116 04/30/2017 [facility] Diastolic (mm Hg) 71 04/30/2017 [facility] Temperature Oral (F) 97.8 F 04/30/2017 [facility] Respitory Rate 16 04/30/2017 [facility] Heart Rate 78 04/30/2017 [facility] Temperature Oral (F) 98.5 F 04/26/2016 [facility] Heart Rate 84 04/26/2016 [facility] Systolic (mm Hg) 138 04/26/2016 [facility] Diastolic (mm Hg) 79 04/26/2016 [facility] Respitory Rate 16 04/26/2016 [facility] Systolic (mm Hg) 146 04/26/2016 [facility] Diastolic (mm Hg) 91 04/26/2016 [facility] Temperature Oral (F) 98.4 F 04/26/2016 [facility] Heart Rate 88 04/26/2016 [facility] Respitory Rate 18 04/26/2016 [facility] Temperature Oral (F) 99.2 F 04/25/2016 [facility] Heart Rate 84 04/25/2016 [facility] Respitory Rate 17 04/25/2016 [facility] Systolic (mm Hg) 154 04/25/2016 [facility] Diastolic (mm Hg) 89 04/25/2016 [facility] Weight 76.818 04/25/2016 [facility] BMI Calculated 27.33 04/25/2016 [facility] Height 167.64 cm 04/25/2016 [facility] Respitory Rate 20 11/25/2015 [facility] Heart Rate 82 11/25/2015 [facility] Temperature Oral (F) 98.2 F 11/25/2015 [facility] Systolic (mm Hg) 105 11/25/2015 [facility] Diastolic (mm Hg) 65 11/25/2015 [facility] Systolic (mm Hg) 100 11/25/2015 [facility] Diastolic (mm Hg) 51 11/25/2015 [facility] BMI Calculated 29.76 11/25/2015 [facility] Respitory Rate 20 11/25/2015 [facility] Weight 78.636 11/25/2015 [facility] Height 162.56 cm 11/25/2015 [facility] Temperature Oral (F) 98.0 F 11/25/2015 [facility] Heart Rate 70 11/25/2015 [facility] Systolic (mm Hg) 95 11/25/2015 [facility] Diastolic (mm Hg) 54 11/25/2015 [facility] Respitory Rate 16 10/25/2015 [facility] Heart Rate 73 10/25/2015 [facility] Systolic (mm Hg) 123 10/25/2015 [facility] Diastolic (mm Hg) 67 10/25/2015 [facility] Respitory Rate 16 10/25/2015 [facility] Systolic (mm Hg) 135 10/25/2015 [facility] Diastolic (mm Hg) 70 10/25/2015 [facility] Heart Rate 71 10/25/2015 [facility] Weight 78.636 10/25/2015 [facility] BMI Calculated 28.85 10/25/2015 [facility] Systolic (mm Hg) 118 10/25/2015 [facility] Diastolic (mm Hg) 68 10/25/2015 [facility] Height 165.1 cm 10/25/2015 [facility] Temperature Oral (F) 98.2 F 10/25/2015 [facility] Heart Rate 73 10/25/2015 [facility] Respitory Rate 14 10/25/2015 [facility] Heart Rate 73 09/10/2014 [facility] Temperature Oral (F) 98.5 F 09/10/2014 [facility] Respitory Rate 18 09/10/2014 [facility] BMI Calculated 28.85 09/10/2014 [facility] Weight 78.636 09/10/2014 [facility] Height 165.1 cm 09/10/2014 [facility] Heart Rate 98 09/10/2014 [facility] Systolic (mm Hg) 167 09/10/2014 [facility] Diastolic (mm Hg) 78 09/10/2014 [facility] Respitory Rate 18 09/10/2014 [facility] Temperature Oral (F) 98.1 F 09/10/2014 [facility] Diastolic (mm Hg) 55 07/25/2013 [facility] Systolic (mm Hg) 121 07/25/2013 [facility] Temperature Oral (F) 97.7 F 07/25/2013 [facility] Heart Rate 79 07/25/2013 [facility] Respitory Rate 20 07/25/2013 [facility] Weight 78.636 07/25/2013 [facility] Respitory Rate 18 07/25/2013 [facility] Heart Rate 52 07/25/2013 [facility] Diastolic (mm Hg) 73 07/25/2013 [facility] Systolic (mm Hg) 150 07/25/2013 [facility] Temperature Oral (F) 97.7 F 07/25/2013 [facility] Height 177.80 cm 01/04/2012 [facility] Weight 78.636 01/04/2012 [facility] Encounters Location Location Details Encounter Type Encounter Number Reason For Visit Attending Provider ADM Date DC Date Status Source [facility] Emergency [id number] TADEO CONTI 01/04/2012 01/04/2012 Active [facility] [id number] _[id number] Vern Zuleta 07/25/2013 07/25/2013 [facility] [id number] Carlos Obrien 09/10/2014 09/10/2014 [facility] Outpatient [id number] AMINTA GARCIA 01/25/2015 Active [facility] Outpatient [id number] AMINTA GARCIA 02/27/2015 Active [facility] [id number] MATT MCFARLANEAMADOU 03/02/2015 [facility] [id number] AMINTA GARCIA 07/31/2015 Active [facility] [id number] AMINTA GARCIA 09/12/2015 Active [facility] [id number] Tyron Sanders 10/25/2015 10/25/2015 [facility] Outpatient [id number] AMINTA GARCIA 11/01/2015 Active [facility] [id number] Carlos Obrien 11/25/2015 11/25/2015 [facility] Outpatient [id number] AMINTA GARCIA 12/06/2015 [facility] [id number] AMINTA GARCIA 12/26/2015 [facility] [id number] AMINTA GARCIA 04/23/2016 [facility] [id number] AMINTA GARCIA 04/23/2016 Active [facility] [id number] Phi Hale 04/25/2016 04/26/2016 [facility] Outpatient [id number] AMINTA GARCIA 08/29/2016 [facility] [id number] AMINTA GARCIA 01/01/2017 Active [facility] [id number] AMINTA GARCIA 01/22/2017 Active [facility] [id number] AMINTA GARCIA 04/30/2017 Active [facility] Outpatient [id number] Aminta Garcia 04/30/2017 05/01/2017 [facility] Emergency [id number] Phi Hale 05/31/2017 05/31/2017 [facility] Phone Message [id number] 07/01/2017 07/03/2017 [facility] Outpatient [id number] AMINTA GARCIA 07/29/2017 Active [facility] Ambulatory Pre-Reg [id number] Aminta Garcia 07/29/2017 07/29/2017 [facility] Procedures Procedure Code Date Perfomer Comments Source Eye examination<sup>1</sup> [id number] 10/17/2016 diabetic retinopathy [facility] Eye examination<sup>1</sup> [id number] 10/17/2016 diabetic retinopathy [facility] Eye examination<sup>1</sup> [id number] 10/18/2015 diabetic retinopathy [facility] Fall risk assessment [id number] 07/31/2015 [facility] Eye examination [id number] 10/03/2014 [facility] Colonoscopy<sup>2</sup> [id number] 02/26/2012 Diverticulosis [facility] Colonoscopy<sup>2</sup> [id number] 02/26/2012 Diverticulosis [facility] Colonoscopy<sup>1</sup> [id number] 02/26/2012 Diverticulosis [facility]
--- OUTSIDE RECORDS SUMMARY | 2018-04-16 05:48 | XMS REPORT | Summary of Care ---
Author Organization Unknown Address Unknown Phone Unavailable Encounter Dates Location Diagnoses Discharge Providers Disposition 07/25/2013 [facility] Discharge Home Song, [facility] Diagnosis: 07/25/2013 [id number] allergic [place], [place] [address]- , [facility] [place] reaction Reason for Visit ITCHING Vital Signs Most recent to 1 2 oldest [Reference Range]: Temperature Oral 97.7 DegF 97.7 DegF [96.4-99.1 DegF] (07/25/2013 06:00:00 Angie/Ceiba) (07/25/2013 03:08:00 Angie/Ceiba) Systolic Blood 121 mmHg 150 mmHg Pressure [90-140 (07/25/2013 06:00:00 Angie/Ceiba) *HI* mmHg] (07/25/2013 03:08:00 Angie/Ceiba) Diastolic Blood 55 mmHg 73 mmHg Pressure [60-90 *LOW* (07/25/2013 03:08:00 Angie/Ceiba) mmHg] (07/25/2013 06:00:00 Angie/Ceiba) Respiratory Rate 20 BRMIN 18 BRMIN [14-20 BRMIN] (07/25/2013 06:00:00 Angie/Ceiba) (07/25/2013 03:08:00 Angie/Ceiba) Peripheral Pulse 79 bpm 52 bpm Rate [60-100 bpm] (07/25/2013 06:00:00 Angie/Ceiba) *LOW* (07/25/2013 03:08:00 Angie/Ceiba) Weight 78.636 kg (07/25/2013 03:08:00 Angie/Ceiba) Problem List No data available for this section Allergies, Adverse Reactions, Alerts Status Substance Reaction Severity Active NKDA Medications Medication Instructions Start Date Stop Date Status Ativan 2 mg, Route: IVP, Drug form: INJ, 07/25/2013 07/25/2013 Discontinued ONCE, Dosing Weight 78.636, kg, Priority: STAT, Start date: 07/25/13 6:04:00, Stop date: 07/25/13 6:04:00 DepoMedrol 80 mg, 1 mL, Route: IM, Drug form: 07/25/2013 07/25/2013 Completed SUSP, ONCE, Dosing Weight 78.636, kg, Start date: 07/25/13 5:20:00, Stop date: 07/25/13 5:20:00 (methylprednisolone acetate 80 mg/1 ml INJ VL) (Same as:Depo-Medrol) For IM use only. hydrOXYzine 50 mg, 1 mL, Route: IM, Drug form: 07/25/2013 07/25/2013 Completed hydrochloride INJ, ONCE, Dosing Weight 78.636, kg, Start date: 07/25/13 4:18:00, Stop date: 07/25/13 4:18:00 (Same as: Vistaril) Medications Administered During Your Visit No data available for this section Immunizations Vaccine Date Refusal Reason tetanus-diphtheria toxoids 11/15/2009
--- OUTSIDE RECORDS SUMMARY | 2018-04-16 05:48 | XMS REPORT | Summary of Care ---
Author Author [facility] Organization [facility] Address Unknown Phone Unavailable Encounter TERESA Pederson(FIN) [id number] Date(s): 04/30/17 - 04/30/17 [facility] [address], [address] [place], [place] [address]- [phone] Discharge Disposition: Home or Self Care Attending Physician: Aminta Gimenez MD Vital Signs Most recent to 1 oldest [Reference Range]: Height 167.64 cm (04/30/17 3:37 PM) Temperature Oral 97.8 DegF [96.4-99.1 DegF] (04/30/17 3:37 PM) Blood Pressure 116/71 mmHg [90-140/60-90 mmHg] (04/30/17 3:37 PM) Respiratory Rate 16 BRMIN [14-20 BRMIN] (04/30/17 3:37 PM) Peripheral Pulse 78 bpm Rate [60-100 bpm] (04/30/17 3:37 PM) Weight 77.727 kg (04/30/17 3:37 PM) Body Mass Index 27.66 m2 (04/30/17 3:37 PM) Problem List Condition Effective Dates Status Health Status Informant Acute upper 05/25/13 Resolved respiratory infection1, 2 Benign essential 05/25/13 Active hypertension(Confirm ed)3 Body mass index 30+ 10/05/13 Active - obesity4 Chronic 05/25/13 Active constipation5 Gout(Confirmed) Active H/O: Resolved gastrointestinal disease6, 7 Hyperlipidemia(Confi Active rmed) Hypertension(Confirm Resolved ed) Injury of left Active toe(Confirmed) Knee pain(Confirmed) Active Osteoarthritis(Confi Active rmed) Raised prostate 06/08/13 Active specific antigen8 Diabetes mellitus Active type 2, controlled(Confirmed ) 1Data migrated from [employer] on 11/19/14. 2Data migrated from [employer] on 11/18/14. 3Data migrated from [employer] on 10/01/14. 4Data migrated from [employer] on 10/01/14. 5Data migrated from [employer] on 10/01/14. 6Data migrated from [employer] on 11/19/14. 7Data migrated from [employer] on 11/18/14. 8Data migrated from [employer] on 10/01/14. Allergies, Adverse Reactions, Alerts Substance Reaction Severity Status NKDA Active Medications allopurinol 100 mg oral tablet 100 mg=1 tab, PO, Daily, # 90 tab, 1 Refill(s), Pharmacy: [facility] [id number] Start Date: 04/30/17 Status: Ordered esomeprazole 20 mg oral delayed release capsule 20 mg=1 cap, PO, BID, # 60 cap, 1 Refill(s), Pharmacy: [facility] [id number] Start Date: 04/30/17 Stop Date: 06/29/17 Status: Ordered lisinopril 20 mg oral tablet See Instructions, TAKE 1 TABLET BY MOUTH DAILY, # 90 tab, 1 Refill(s), Pharmacy: [facility] [id number] Start Date: 04/30/17 Stop Date: 04/30/17 Status: Completed Metoprolol Tartrate 25 mg oral tablet See Instructions, TAKE 1/2 TABLET BY MOUTH TWICE DAILY, # 90 tab, 1 Refill(s), P harmacy: [facility] [id number] Start Date: 04/30/17 Status: Ordered pantoprazole 40 mg oral enteric coated tablet 40 mg=1 tab, PO, Daily, # 90 tab, 1 Refill(s), Pharmacy: [facility] [id number] Start Date: 05/01/17 Stop Date: 10/28/17 Status: Ordered Results No data available for this section Immunizations Given and Recorded Vaccine Date Status Refusal Reason influenza virus vaccine, inactivated1 01/22/17 Given influenza virus vaccine, inactivated 01/25/15 Given influenza virus vaccine, inactivated2 01/17/14 Given Hx influenza vaccine-unspecified3 01/17/14 Given pneumococcal 23-valent vaccine4 05/25/13 Given tetanus-diphtheria toxoids 11/15/09 Given 1Result Comment: Patient waited in room for 10 m ins, no allergic reaction. 2Result Comment: fluzone high dose [[id number]]. Migrated from OBS ; Data migrated from [employer] on 06/06/2015. 3Result Comment: done high dose. Migrated from OBS ; Data migrated from [employer] on 06/06/2015. 4Result Comment: pneumovax 23 [[id number]]. Migrated from OBS VIS: Pneumovax 23: 02-07-09 ; Data migrated from [employer] on 06/06/2015. Procedures Procedure Date Related Diagnosis Body Site Eye examination1 10/17/16 Colonoscopy2 02/26/12 1diabetic retinopathy 2Diverticulosis Social History Social History Type Response Alcohol Past Smoking Status Former smoker; Exposure to Tobacco Smoke None; Cigarette Smoking Last 365 Days No; Reg Smoking Cessation Counseling No Assessment and Plan No data available for this section
--- OUTSIDE RECORDS SUMMARY | 2018-04-16 05:48 | XMS REPORT | Summary of Care ---
Author Author [facility] Organization [facility] Address Unknown Phone Unavailable Encounter TERESA Pederson(FIN) [id number] Date(s): 07/01/17 - 07/02/17 [facility] [address], [address] [place] [address] [phone] Vital Signs No data available for this section Problem List Condition Effective Dates Status Health [...] type 2, controlled(Confirmed ) 1Data migrated from [employer] on 11/19/14. 2Data migrated from [employer] on 11/18/14. 3Data migrated from [employer] on 10/01/14. 4Data migrated from [employer] on 10/01/14. 5Data migrated from [employer] on 10/01/14. 6Data migrated from [employer] on 11/19/14. 7Data migrated from [employer] on 11/18/14. 8Data migrated from [employer] on 10/01/14. Allergies, Adverse Reactions, Alerts Substance Reaction Severity Status NKDA Active Medications [facility] ULTRA THIN LANCETS 30G See Instructions, # 100 unknown unit, Refill(s) 11, USE DIRECTED, Pharmacy: [facility] [id number] Start Date: 07/01/17 Status: Ordered Results No data available for [...] allergic reaction. 2Result Comment: fluzone high dose [[id number]]. Migrated from OBS ; Data migrated from [employer] on 06/06/2015. 3Result Comment: done high dose. Migrated from OBS ; Data migrated from [employer] on 06/06/2015. 4Result Comment: pneumovax 23 [cvx33]. Migrated from OBS VIS: Pneumovax 23: 10 ; Data migrated from [employer] on 06/06/2015. Procedures Procedure Date Related Diagnosis Body Site Status Eye examination1 10/17/16 Completed Colonoscopy2 02/26/12 Completed 1diabetic retinopathy 2Diverticulosis Social History Social History Type Response Alcohol Past Smoking Status Never smoker; Exposure to Tobacco Smoke None; Cigarette Smoking Last 365 Days No; Reg Smoking Cessation Counseling No entered on: 05/31/17 Assessment and Plan No data available for this section
--- OUTSIDE RECORDS SUMMARY | 2018-04-16 05:48 | XMS REPORT | Summary of Care ---
Author Author [facility] Organization [facility] Address Unknown Phone Unavailable Encounter TERESA Pederson(KATYA) [id number] Date(s): 10/25/15 - 10/25/15 [facility] [address] [place] [address]- Discharge Diagnosis: Acute gout Discharge Disposition: Home Attending Physician: Tyron Sanders MD Vital Signs 1 2 3 Most recent to oldest [Reference Range]: 165.1 cm (10/25/15 3:46 PM) Height 98.2 DegF (10/25/15 3:46 PM) Temperature Oral [96.4-99.1 DegF] 123/67 mmHg (10/25/15 6:05 PM) 118/68 mmHg (10/25/15 3:46 PM) Blood Pressure [90-140/60-90 mmHg] 135 mmHg (10/25/15 5:11 PM) Systolic Blood Pressure [90-140 mmHg] 70 mmHg (10/25/15 5:11 PM) Diastolic Blood Pressure [60-90 mmHg] 16 BRMIN (10/25/15 6:05 PM) 16 BRMIN (10/25/15 5:11 PM) 14 BRMIN (10/25/15 3:46 PM) Respiratory Rate [14-20 BRMIN] 73 bpm (10/25/15 6:05 PM) 71 bpm (10/25/15 5:11 PM) 73 bpm (10/25/15 3:46 PM) Peripheral Pulse Rate [60-100 bpm] 78.636 kg (10/25/15 3:46 PM) Weight 28.85 m2 (10/25/15 3:46 PM) Body Mass Index Problem List Condition Effective Dates Status Health Status Informant Acute upper 05/25/13 Resolved respiratory infection1, 2 Benign essential 05/25/13 Active hypertension3 Body mass index 30+ 6/3/14 Active - obesity4 Chronic 05/25/13 Active constipation5 H/O: Resolved gastrointestinal disease6, 7 Hypertension(Confirm Resolved ed) Prediabetes(Confirme Active d) Raised prostate 06/08/13 Active specific antigen8 Tobacco user9 10/05/13 Active 1Data migrated from [employer] on 11/19/14. 2Data migrated from [employer] on 11/18/14. 3Data migrated from [employer] on 10/01/14. 4Data migrated from [employer] on 10/01/14. 5Data migrated from [employer] on 10/01/14. 6Data migrated from [employer] on 11/19/14. 7Data migrated from [employer] on 11/18/14. 8Data migrated from [employer] on 10/01/14. 9Data migrated from [employer] on 10/01/14. Allergies, Adverse Reactions, Alerts Substance Reaction Severity Status NKDA Active Medications ibuprofen 600 mg, 3 tab, Route: PO, Drug form: TAB, ONCE, Dosing Weight 78.636, kg, Priori ty: STAT, Start date: 10/25/15 17:21:00 CDT, Stop date: 10/25/15 17:21:00 CDT Notes: (Same as: Advil) Give with food. Start Date: 10/25/15 Stop Date: 10/25/15 Status: Completed [place] 5/325 oral tablet 1 tab, PO, Q4H, PRN for pain, X 5 day, # 15 tab, 0 Refill(s) Start Date: 10/25/15 Stop Date: 10/30/15 Status: Ordered predniSONE 20 mg oral tablet See Special Instructions, PO, Daily, 6 day regimen: Days 1-3 - 40 mg (2 tabs) d aily Days 4-6 - 20 mg (1 tabs) daily with food, X 6 day, # 9 tab, 0 Refill( s), Pharmacy: [facility] [id number] Start Date: 10/25/15 Stop Date: 10/31/15 Status: Ordered Solu-MEDROL 125 mg, 2 mL, Route: IVP, Drug form: INJ, ONCE, Dosing Weight 78.636, kg, Priori ty: STAT, Start date: 10/25/15 17:21:00 CDT, Stop date: 10/25/15 17:21:00 CDT Notes: (Same as:Solu-MEDROL, A-Methapred) Start Date: 10/25/15 Stop Date: 10/25/15 Status: Completed Results ELECTROLYTES Most recent to 1 oldest [Reference Range]: Sodium Lvl [135-145 136 mEq/L mEq/L] (10/25/15 4:22 PM) Potassium Lvl 4.1 mEq/L [3.5-5.1 mEq/L] (10/25/15 4:22 PM) Chloride Lvl [95-109 103 mEq/L mEq/L] (10/25/15 4:22 PM) CO2 [24-32 mEq/L] 25 mEq/L (10/25/15 4:22 PM) AGAP [10.0-20.0 12.1 mEq/L mEq/L] (10/25/15 4:22 PM) CHEM PANEL Most recent to 1 oldest [Reference Range]: Creatinine Lvl 1.31 mg/dL [0.50-1.40 mg/dL] (10/25/15 4:22 PM) eGFR 53 mL/min/1.73m2 1 *NA* (10/25/15 4:22 PM) BUN [7-22 mg/dL] 21 mg/dL (10/25/15 4:22 PM) B/C Ratio [6-25] 16 (10/25/15 4:22 PM) Glucose Lvl [70-99 86 mg/dL mg/dL] (10/25/15 4:22 PM) Uric Acid [3.8-8.0 6.7 mg/dL mg/dL] (10/25/15 4:22 PM) Total Protein 7.5 g/dL [6.4-8.4 g/dL] (10/25/15 4:22 PM) Albumin Lvl [3.5-5.0 3.9 g/dL g/dL] (10/25/15 4:22 PM) Globulin [2.0-4.0 3.6 g/dL g/dL] (10/25/15 4:22 PM) A/G Ratio [0.7-1.6] 1.1 (10/25/15 4:22 PM) Calcium Lvl 9.4 mg/dL [8.5-10.5 mg/dL] (10/25/15 4:22 PM) ALT [0-65 unit/L] 17 unit/L (10/25/15 4:22 PM) AST [0-37 unit/L] 11 unit/L (10/25/15 4:22 PM) Alk Phos [39-136 80 unit/L unit/L] (10/25/15 4:22 PM) Bili Total [0.2-1.3 0.6 mg/dL mg/dL] (10/25/15 4:22 PM) 1Result Comment: The eGFR is calculated using the [...] from the National Kidney Disease Education Program ( NKDEP) which additionally recommends that when the eGFR is used in patients with extremes of body mass index for purposes of drug dosing, the eGFR should be mul tiplied by the estimated BMI. HEMATOLOGY Most recent to 1 oldest [Reference Range]: WBC [3.7-10.4 K/CMM] 7.9 K/CMM (10/25/15 4:22 PM) RBC [4.70-6.10 4.77 M/CMM M/CMM] (10/25/15 4:22 PM) Hgb [14.0-18.0 g/dL] 13.7 g/dL *LOW* (10/25/15 4:22 PM) Hct [42.0-54.0 %] 41.6 % *LOW* (10/25/15 4:22 PM) MCV [80.0-94.0 fL] 87.2 fL (10/25/15 4:22 PM) MCH [27.0-31.0 pg] 28.8 pg (10/25/15 4:22 PM) MCHC [32.0-36.0 33.0 g/dL g/dL] (10/25/15 4:22 PM) RDW [11.5-14.5 %] 14.0 % (10/25/15 4:22 PM) Platelet [133-450 178 K/CMM K/CMM] (10/25/15 4:22 PM) MPV [7.4-10.4 fL] 9.8 fL (10/25/15 4:22 PM) Segs [45.0-75.0 %] 64.9 % (10/25/15 4:22 PM) Lymphocytes 20.2 % [20.0-40.0 %] (10/25/15 4:22 PM) Monocytes [2.0-12.0 10.2 % %] (10/25/15 4:22 PM) Eosinophils [0.0-4.0 3.9 % %] (10/25/15 4:22 PM) Basophils [0.0-1.0 0.8 % %] (10/25/15 4:22 PM) Segs-Bands # 5.1 K/CMM [1.5-8.1 K/CMM] (10/25/15 4:22 PM) Lymphocytes # 1.6 K/CMM [1.0-5.5 K/CMM] (10/25/15 4:22 PM) Monocytes # [0.0-0.8 0.8 K/CMM K/CMM] (10/25/15 4:22 PM) Eosinophils # 0.3 K/CMM [0.0-0.5 K/CMM] (10/25/15 4:22 PM) Basophils # [0.0-0.2 0.1 K/CMM K/CMM] (10/25/15 4:22 PM) Sed Rate [0-15 37 mm/hr mm/hr] *HI* (10/25/15 4:22 PM) Immunizations Given and Recorded Vaccine Date Status Refusal Reason Hx influenza vaccine-unspecified1 01/17/14 Given influenza virus vaccine, inactivated 01/25/15 Given influenza virus vaccine, inactivated2 01/17/14 Given pneumococcal 23-valent vaccine3 05/25/13 Given tetanus-diphtheria toxoids 11/15/09 Given 1Result Comment: done high dose. Migrated from OBS ; Data migrated from [employer] on 06/06/2015. 2Result Comment: fluzone high dose [[id number]]. Migrated from OBS ; Data migrated from [employer] on 06/06/2015. 3Result Comment: pneumovax 23 [cvx33]. Migrated from OBS VIS: Pneumovax 23: 02-07-09 ; Data migrated from [employer] on 06/06/2015. Procedures Procedure Date Related Diagnosis Body Site Fall risk assessment 07/31/15 Eye examination 10/2014 Colonoscopy1 02/26/12 1Diverticulosis Social History Social History Type Response Alcohol Past Smoking Status Former smoker; Exposure to Tobacco Smoke None; Cigarette Smoking Last 365 Days No; Reg Smoking Cessation Counseling No Assessment and Plan No data available for this section
--- OUTSIDE RECORDS SUMMARY | 2018-04-16 05:48 | XMS REPORT | CCD ---
Author Author Auto Generated Organization [facility] Address Unknown Phone Unavailable Care Team Providers Care Cash Register Servicer Name Role Phone Talya Linda RP MicheleEric ross CP Allergies, Adverse Reactions, Alerts Substance Reaction Status NKDA Active Medications Medication Instructions Start Date End Date Status [place] 5/325 oral 1 tab, PO, Q6H, PRN, 15 tab, for 01/04/2012 Ordered tablet pain, Substitution Allowed, Maintenance, TAB tetanus-diphtheria 0.5 ml, Route: IM, ONCE, Start 11/15/2009 11/15/2009 Completed toxoids date: 11/15/09 12:57:00, Stop date: 11/15/09 12:57:00 acetaminophen-hydroc 1 tab, Route: PO, Drug Form: TAB, 01/04/2012 01/04/2012 Completed odone 325 mg-5 mg kg, ONCE, STAT, Start date: oral tablet 01/04/12 15:24:00, Stop date: 01/04/12 15:24:00 Immunizations Vaccine Date Status tetanus-diphtheria toxoids 11/15/2009 Auth (Verified) Vital Signs Most recent to oldest [Reference Range]: 1 Height 177.80 cm (01/04/2012 12:46:00) Weight 78.636 kg (01/04/2012 12:46:00)
--- OUTSIDE RECORDS SUMMARY | 2018-04-16 05:48 | XMS REPORT | Summary of Care ---
Author Author [facility] Organization [facility] Address Unknown Phone Unavailable Encounter TERESA Pederson(KATYA) [id number] Date(s): 05/31/17 - 05/31/17 [facility] [address] [place] [address]- Encounter Diagnosis Acute gout (Discharge Diagnosis) - 05/31/17 Idiopathic gout, left ankle and foot (Final) - 06/04/17 Underdosing of drugs affecting uric acid metabolism, initial encounter (Final) - Patient's intentional underdosing of medication regimen for other reason (Final) - Essential (primary) hypertension (Final) - Type 2 diabetes mellitus without complications (Final) - Discharge Disposition: Home or Self Care Attending Physician: Phi Hale MD Vital Signs Most recent to 1 2 oldest [Reference Range]: Height 167.64 cm (05/31/17 11:02 AM) Temperature Oral 98.0 DegF 98.0 DegF [96.4-99.1 DegF] (05/31/17 12:53 PM) (05/31/17 11:02 AM) Blood Pressure 137/67 mmHg [90-140/60-90 mmHg] (05/31/17 11:02 AM) Systolic Blood 138 mmHg Pressure [90-140 (05/31/17 12:53 PM) mmHg] Diastolic Blood 77 mmHg Pressure [60-90 (05/31/17 12:53 PM) mmHg] Respiratory Rate 15 BRMIN 16 BRMIN [14-20 BRMIN] (05/31/17 12:53 PM) (05/31/17 11:02 AM) Peripheral Pulse 77 bpm 73 bpm Rate [60-100 bpm] (05/31/17 12:53 PM) (05/31/17 11:02 AM) Weight 78.182 kg (05/31/17 11:02 AM) Body Mass Index 27.82 m2 (05/31/17 11:02 AM) Problem List Condition Effective Dates Status Health [...] Substance Reaction Severity Status NKDA Active Medications Motrin 600 mg oral tablet 600 mg=1 tab, PO, Q6H, PRN Pain, take with food, # 30 tab, 0 Refill(s) Start Date: 05/31/17 Stop Date: 07/02/17 Status: Completed [place] 10/325 oral tablet 1 tab, Route: PO, Drug Form: TAB, Dosing Weight 78.182, kg, ONCE, STAT, Start da te: 05/31/17 11:18:00 FERN GATHERER, Stop date: 05/31/17 11:18:00 FERN GATHERER Notes: Do not exceed 4gm/day of acetaminophen. (Same as: [place] 325/10) Start Date: 05/31/17 Stop Date: 05/31/17 Status: Completed [place] 10/325 oral tablet 1 tab, Route: PO, Drug Form: TAB, Dosing Weight 78.182, kg, ONCE, STAT, Start da te: 05/31/17 11:16:00 FERN GATHERER, Stop date: 05/31/17 11:16:00 FERN GATHERER Start Date: 05/31/17 Stop Date: 05/31/17 Status: Discontinued predniSONE 20 mg oral tablet See Special Instructions, PO, Daily, 4 day regimen: Day 1 - 40 mg (2 tabs) Day 2 - 30 mg (1 1/2 tabs) Day 3 - 20 mg (1 tab) Day 4 - 10 mg (1/2 tab), X 4 day, # 6 tab, 0 Refill(s) Start Date: 05/31/17 Stop Date: 06/04/17 Status: Completed Tylenol with Codeine #3 oral tablet 1 tab, PO, Q6H, PRN Pain, X 5 day, # 19 tab, 0 Refill(s) Start Date: 05/31/17 Stop Date: 06/05/17 Status: Completed Results ELECTROLYTES Most recent to 1 oldest [Reference Range]: Sodium Lvl [135-145 138 mEq/L mEq/L] (05/31/17 11:27 AM) Potassium Lvl 4.1 mEq/L [3.5-5.1 mEq/L] (05/31/17 11:27 AM) Chloride Lvl [95-109 104 mEq/L mEq/L] (05/31/17 11:27 AM) CO2 [24-32 mEq/L] 25 mEq/L (05/31/17 11:27 AM) AGAP [10.0-20.0 13.1 mEq/L mEq/L] (05/31/17 11:27 AM) CHEM PANEL Most recent to 1 oldest [Reference Range]: Creatinine Lvl 1.13 mg/dL [0.50-1.40 mg/dL] (05/31/17 11:27 AM) eGFR 62 mL/min/1.73m2 1 *NA* (05/31/17 11:27 AM) BUN [7-22 mg/dL] 18 mg/dL (05/31/17 11:27 AM) B/C Ratio [6-25] 16 (05/31/17 11:27 AM) Glucose Lvl [70-99 195 mg/dL mg/dL] *HI* (05/31/17 11:27 AM) Total Protein 6.7 g/dL [6.4-8.4 g/dL] (05/31/17 11:27 AM) Albumin Lvl [3.5-5.0 3.4 g/dL g/dL] *LOW* (05/31/17 11:27 AM) Globulin [2.7-4.2 3.3 g/dL g/dL] (05/31/17 11:27 AM) A/G Ratio [0.7-1.6] 1.0 (05/31/17 11:27 AM) Calcium Lvl 8.9 mg/dL [8.5-10.5 mg/dL] (05/31/17 11:27 AM) ALT [0-65 unit/L] 14 unit/L (05/31/17 11:27 AM) AST [0-37 unit/L] 10 unit/L (05/31/17 11:27 AM) Alk Phos [39-136 80 unit/L unit/L] (05/31/17 11:27 AM) Bili Total [0.2-1.3 0.6 mg/dL mg/dL] (05/31/17 11:27 AM) 1Result Comment: The eGFR is calculated using [...] 1 oldest [Reference Range]: WBC [3.7-10.4 K/CMM] 7.2 K/CMM (05/31/17 11:27 AM) RBC [4.70-6.10 4.42 M/CMM M/CMM] *LOW* (05/31/17 11:27 AM) Hgb [14.0-18.0 g/dL] 13.3 g/dL *LOW* (05/31/17 11:27 AM) Hct [42.0-54.0 %] 39.4 % *LOW* (05/31/17 11:27 AM) MCV [80.0-94.0 fL] 89.0 fL (05/31/17 11:27 AM) MCH [27.0-31.0 pg] 30.2 pg (05/31/17 11:27 AM) MCHC [32.0-36.0 33.9 g/dL g/dL] (05/31/17 11:27 AM) RDW [11.5-14.5 %] 13.5 % (05/31/17 11:27 AM) MPV [7.4-10.4 fL] 9.7 fL (05/31/17 11:27 AM) Platelet [133-450 185 K/CMM K/CMM] (05/31/17 11:27 AM) Segs [45.0-75.0 %] 68.6 % (05/31/17 11:27 AM) Lymphocytes 17.5 % [20.0-40.0 %] *LOW* (05/31/17 11:27 AM) Monocytes [2.0-12.0 8.5 % %] (05/31/17 11:27 AM) Eosinophils [0.0-4.0 4.5 % %] *HI* (05/31/17 11:27 AM) Basophils [0.0-1.0 0.9 % %] (05/31/17 11:27 AM) Segs-Bands # 4.9 K/CMM [1.5-8.1 K/CMM] (05/31/17 11:27 AM) Lymphocytes # 1.3 K/CMM [1.0-5.5 K/CMM] (05/31/17 11:27 AM) Monocytes # [0.0-0.8 0.6 K/CMM K/CMM] (05/31/17 11:27 AM) Eosinophils # 0.3 K/CMM [0.0-0.5 K/CMM] (05/31/17 11:27 AM) Basophils # [0.0-0.2 0.1 K/CMM K/CMM] (05/31/17 11:27 AM) Immunizations Given and Recorded Vaccine Date Status Refusal Reason influenza virus vaccine, inactivated1 01/22/17 Given influenza virus vaccine, inactivated 01/25/15 Given influenza virus vaccine, inactivated2 01/17/14 Given Hx influenza vaccine-unspecified3 01/17/14 Given pneumococcal 23-valent vaccine4 05/25/13 Given tetanus-diphtheria toxoids 11/15/09 Given 1Result Comment: Patient waited in room for 10 m ins, no allergic reaction. 2Result Comment: fluzone high dose [[id number]]. Migrated from OBS ; Data migrated from [employer] on 06/06/2015. 3Result Comment: done high dose. Migrated from OBS ; Data migrated from [employer] on 06/06/2015. 4Result Comment: pneumovax 23 [cvx33]. Migrated from OBS VIS: Pneumovax 23: 02-07-09 ; Data migrated from [employer] on 06/06/2015. Procedures Procedure Date Related Diagnosis [...]
--- OUTSIDE RECORDS SUMMARY | 2018-04-16 05:48 | XMS REPORT | Summary of Care ---
Author Author [facility] Organization [facility] Address Unknown Phone Unavailable Encounter TERESA Pederson(FIN) [id number] Date(s): 07/29/17 - 07/29/17 [facility] [address], [address] [place] [address]- [phone] Attending Physician: Aminta Gimenez MD Vital Signs No data available for this [...] Substance Reaction Severity Status NKDA Active Medications No data available for this section Results No data available for this section [...] allergic reaction. 2Result Comment: fluzone high dose [[id number]]. Migrated from OBS ; Data migrated from [facility] on 06/06/2015. 3Result Comment: done high dose. Migrated from OBS ; Data migrated from [facility] on 06/06/2015. 4Result Comment: pneumovax 23 [cvx33]. Migrated from OBS VIS: Pneumovax 23: 02-07-09 ; Data migrated from [facility] on 06/06/2015. Procedures Procedure Date Related Diagnosis [...]
--- OUTSIDE RECORDS SUMMARY | 2018-04-16 05:48 | XMS REPORT | Summary of Care ---
Author Author [facility] Organization [facility] Address Unknown Phone Unavailable Encounter TERESA Pederson(KATYA) [id number] Date(s): 11/25/15 - 11/25/15 [facility] [address] [place] [address]- Discharge Diagnosis: Low back pain Discharge Disposition: Home or Self Care Attending Physician: Carlos Obrien MD Vital Signs 1 2 3 Most recent to oldest [Reference Range]: 162.56 cm (11/25/15 11:15 AM) Height 98.2 DegF (11/25/15 2:05 PM) 98.0 DegF (11/25/15 11:15 AM) Temperature Oral [96.4-99.1 DegF] 105/65 mmHg (11/25/15 2:05 PM) 100/51 mmHg (11/25/15 12:46 PM) 95/54 mmHg (11/25/15 11:15 AM) Blood Pressure [90-140/60-90 mmHg] 20 BRMIN (11/25/15 2:05 PM) 20 BRMIN (11/25/15 11:15 AM) Respiratory Rate [14-20 BRMIN] 82 bpm (11/25/15 2:05 PM) 70 bpm (11/25/15 11:15 AM) Peripheral Pulse Rate [60-100 bpm] 78.636 kg (11/25/15 11:15 AM) Weight 29.76 m2 (11/25/15 11:15 AM) Body Mass Index Problem List Condition Effective Dates Status Health Status Informant Acute upper 05/25/13 Resolved respiratory infection1, 2 Benign essential 05/25/13 Active hypertension3 Body mass index 30+ 10/05/13 Active - [...] Substance Reaction Severity Status NKDA Active Medications predniSONE 20 mg oral tablet 20 mg=1 tab, PO, Daily, X 7 day, # 7 tab, 0 Refill(s), Pharmacy: [id number] Start Date: 11/25/15 Stop Date: 12/02/15 Status: Ordered Saline Flush 0.9% 10 mL, Route: IVP, Drug Form: INJ, Dosing Weight 78.636, kg, PRN, PRN Line Flush , Start date: 11/25/15 11:33:00 CDT, Duration: 30 day, Stop date: 12/25/15 11:32 :00 CDT Notes: (Same as: BD Posiflush) Start Date: 11/25/15 Stop Date: 11/25/15 Status: Discontinued Solu-MEDROL 40 mg, Route: IM, ONCE, Dosing Weight 78.636, kg, Start date: 11/25/15 14:00:00 CDT, Stop date: 11/25/15 14:00:00 CDT Start Date: 11/25/15 Stop Date: 11/25/15 Status: Completed Results ELECTROLYTES Most recent to 1 oldest [Reference Range]: Sodium Lvl [135-145 136 mEq/L mEq/L] (11/25/15 11:38 AM) Potassium Lvl 4.4 mEq/L [3.5-5.1 mEq/L] (11/25/15 11:38 AM) Chloride Lvl [95-109 103 mEq/L mEq/L] (11/25/15 11:38 AM) CO2 [24-32 mEq/L] 25 mEq/L (11/25/15 11:38 AM) AGAP [10.0-20.0 12.4 mEq/L mEq/L] (11/25/15 11:38 AM) CHEM PANEL Most recent to 1 oldest [Reference Range]: Creatinine Lvl 1.57 mg/dL [0.50-1.40 mg/dL] *HI* (11/25/15 11:38 AM) eGFR 42 mL/min/1.73m2 1 *NA* (11/25/15 11:38 AM) BUN [7-22 mg/dL] 32 mg/dL *HI* (11/25/15 11:38 AM) B/C Ratio [6-25] 20 (11/25/15 11:38 AM) Glucose Lvl [70-99 151 mg/dL mg/dL] *HI* (11/25/15 11:38 AM) Total Protein 6.9 g/dL [6.4-8.4 g/dL] (11/25/15 11:38 AM) Albumin Lvl [3.5-5.0 3.4 g/dL g/dL] *LOW* (11/25/15 11:38 AM) Globulin [2.0-4.0 3.5 g/dL g/dL] (11/25/15 11:38 AM) A/G Ratio [0.7-1.6] 1.0 (11/25/15 11:38 AM) Calcium Lvl 9.0 mg/dL [8.5-10.5 mg/dL] (11/25/15 11:38 AM) Magnesium Lvl 2.4 mg/dL [1.8-2.4 mg/dL] (11/25/15 11:38 AM) ALT [0-65 unit/L] 29 unit/L (11/25/15 11:38 AM) AST [0-37 unit/L] 17 unit/L (11/25/15 11:38 AM) Alk Phos [39-136 61 unit/L unit/L] (11/25/15 11:38 AM) Bili Total [0.2-1.3 0.1 mg/dL mg/dL] *LOW* (11/25/15 11:38 AM) 1Result Comment: The eGFR is calculated [...] be mul tiplied by the estimated BMI. CARDIAC ENZYMES Most recent to 1 oldest [Reference Range]: Total CK [12-191 106 unit/L unit/L] (11/25/15 11:38 AM) CK MB [0.5-3.6 2.3 ng/mL ng/mL] (11/25/15 11:38 AM) CK MB Index 2.2 [0.0-2.5] (11/25/15 11:38 AM) Troponin-I <0.02 ng/mL [0.00-0.40 ng/mL] (11/25/15 11:38 AM) BNP [<=100 pg/mL] 82 pg/mL (11/25/15 11:38 AM) URINE AND STOOL Most recent to 1 oldest [Reference Range]: UA Turbidity [Clear] Clear (11/25/15 11:38 AM) UA Color [Yellow] Yellow *NA* (11/25/15 11:38 AM) UA pH [5.0-8.0] 5.0 (11/25/15 11:38 AM) UA Spec Grav 1.014 [<=1.030] (11/25/15 11:38 AM) UA Glucose [Negative Negative mg/dL mg/dL] *NA* (11/25/15 11:38 AM) UA Blood [Negative] Negative (11/25/15 11:38 AM) UA Ketones [Negative Negative mg/dL mg/dL] *NA* (11/25/15 11:38 AM) UA Protein [Negative Negative mg/dL mg/dL] (11/25/15 11:38 AM) UA Urobilinogen <=1.0 mg/dL [0.1-1.0 mg/dL] *NA* (11/25/15 11:38 AM) UA Bili [Negative] Negative *NA* (11/25/15 11:38 AM) UA Leuk Est Negative [Negative] (11/25/15 11:38 AM) UA Nitrite Negative [Negative] (11/25/15 11:38 AM) UA WBC [0-5 /HPF] <1 /HPF (11/25/15 11:38 AM) UA RBC [0-2 /HPF] 1 /HPF (11/25/15 11:38 AM) UA Sq Epi [Few /LPF] Occasional /LPF *NA* (11/25/15 11:38 AM) HEMATOLOGY Most recent to 1 oldest [Reference Range]: WBC [3.7-10.4 K/CMM] 6.7 K/CMM (11/25/15 11:38 AM) RBC [4.70-6.10 4.51 M/CMM M/CMM] *LOW* (11/25/15 11:38 AM) Hgb [14.0-18.0 g/dL] 12.8 g/dL *LOW* (11/25/15 11:38 AM) Hct [42.0-54.0 %] 38.7 % *LOW* (11/25/15 11:38 AM) MCV [80.0-94.0 fL] 85.9 fL (11/25/15 11:38 AM) MCH [27.0-31.0 pg] 28.5 pg (11/25/15 11:38 AM) MCHC [32.0-36.0 33.1 g/dL g/dL] (11/25/15 11:38 AM) RDW [11.5-14.5 %] 13.8 % (11/25/15 11:38 AM) Platelet [133-450 303 K/CMM K/CMM] (11/25/15 11:38 AM) MPV [7.4-10.4 fL] 8.3 fL (11/25/15 11:38 AM) Segs [45.0-75.0 %] 72.6 % (11/25/15 11:38 AM) Lymphocytes 17.2 % [20.0-40.0 %] *LOW* (11/25/15 11:38 AM) Monocytes [2.0-12.0 7.3 % %] (11/25/15 11:38 AM) Eosinophils [0.0-4.0 1.7 % %] (11/25/15 11:38 AM) Basophils [0.0-1.0 1.2 % %] *HI* (11/25/15 11:38 AM) Segs-Bands # 4.9 K/CMM [1.5-8.1 K/CMM] (11/25/15 11:38 AM) Lymphocytes # 1.1 K/CMM [1.0-5.5 K/CMM] (11/25/15 11:38 AM) Monocytes # [0.0-0.8 0.5 K/CMM K/CMM] (11/25/15 11:38 AM) Eosinophils # 0.1 K/CMM [0.0-0.5 K/CMM] (11/25/15 11:38 AM) Basophils # [0.0-0.2 0.1 K/CMM K/CMM] (11/25/15 11:38 AM) Sed Rate [0-15 17 mm/hr mm/hr] *HI* (11/25/15 11:38 AM) PTT [22.9-35.8 28.8 seconds seconds] (11/25/15 11:38 AM) Immunizations Given and Recorded Vaccine Date Status Refusal Reason Hx influenza vaccine-unspecified1 01/17/14 Given influenza virus vaccine, inactivated 01/25/15 Given influenza virus vaccine, inactivated2 01/17/14 Given pneumococcal 23-valent vaccine3 05/25/13 Given tetanus-diphtheria toxoids 11/15/09 Given 1Result Comment: done high dose. Migrated from OBS ; Data migrated from [employer] on 06/06/2015. 2Result Comment: fluzone high dose [[id number]]. Migrated from OBS ; Data migrated from [employer] on 06/06/2015. 3Result Comment: pneumovax 23 [[id number]]. Migrated from OBS VIS: Pneumovax 23: 02-07-09 ; Data migrated from [employer] on 06/06/2015. Procedures Procedure Date Related Diagnosis Body Site Fall risk assessment 07/31/15 Eye examination 10/2014 Colonoscopy1 02/26/12 1Diverticulosis Social History Social History Type Response Alcohol Past Smoking Status Former smoker; Exposure to Tobacco Smoke None; Cigarette Smoking Last 365 Days No; Reg Smoking Cessation Counseling No Assessment and Plan No data available for this section
--- OUTSIDE RECORDS SUMMARY | 2018-04-16 05:48 | XMS REPORT | Summary of Care ---
Author Author [facility] Organization [facility] Address Unknown Phone Unavailable Encounter TERESA Pederson(KATYA) [id number] Date(s): 04/25/16 - 04/25/16 [facility] [address] [place] [address]- Discharge Diagnosis: Gout attack Discharge Disposition: Home or Self Care Attending Physician: Phi Hale MD Vital Signs 1 2 3 Most recent to oldest [Reference Range]: 167.64 cm (04/25/16 5:07 PM) Height 98.5 DegF (04/25/16 9:50 PM) 98.4 DegF (04/25/16 7:27 PM) 99.2 DegF *HI* (04/25/16 5:07 PM) Temperature Oral [96.4-99.1 DegF] 138/79 mmHg (04/25/16 9:50 PM) 146/91 mmHg *HI* (04/25/16 7:27 PM) 154/89 mmHg *HI* (04/25/16 5:07 PM) Blood Pressure [90-140/60-90 mmHg] 16 BRMIN (04/25/16 9:50 PM) 18 BRMIN (04/25/16 7:27 PM) 17 BRMIN (04/25/16 5:07 PM) Respiratory Rate [14-20 BRMIN] 84 bpm (04/25/16 9:50 PM) 88 bpm (04/25/16 7:27 PM) 84 bpm (04/25/16 5:07 PM) Peripheral Pulse Rate [60-100 bpm] 76.818 kg (04/25/16 5:07 PM) Weight 27.33 m2 (04/25/16 5:07 PM) Body Mass Index Problem List Condition Effective Dates Status Health Status Informant Acute upper 05/25/13 Resolved respiratory infection1, 2 Benign essential 05/25/13 Active hypertension3 Body mass index 30+ 10/05/13 Active - obesity4 Chronic 05/25/13 Active constipation5 Gout(Confirmed) Active H/O: Resolved gastrointestinal disease6, 7 Hyperlipidemia(Confi Active rmed) Hypertension(Confirm Resolved ed) Raised prostate 06/08/13 Active specific antigen8 Tobacco user9 10/05/13 Active Diabetes mellitus Active type 2, controlled(Confirmed ) [...] Substance Reaction Severity Status NKDA Active Medications acetaminophen-hydrocodone 325 mg-5 mg oral tablet 1 tab, Route: PO, Drug Form: TAB, Dosing Weight 76.818, kg, ONCE, STAT, Start da te: 04/25/16 19:37:00 [employer]LOBAL PROGRAM MANAGER, Stop date: 04/25/16 19:37:00 GLOBAL PROGRAM MANAGER Notes: (Same as: Semora 325/5) Do not exceed 4gm/day of acetaminophen. Start Date: 04/25/16 Stop Date: 04/25/16 Status: Completed naproxen 375 mg oral enteric coated delayed-release tablet 375 mg=1 tab, PO, BID, PRN as needed for pain, X 5 day, # 10 tab, 0 Refill(s), P harmacy: [facility] [id number] Start Date: 04/25/16 Stop Date: 04/30/16 Status: Ordered Semora 5/325 oral tablet 1 tab, PO, Q6H, PRN Pain, X 3 day, # 12 tab, 0 Refill(s) Start Date: 04/25/16 Stop Date: 04/28/16 Status: Ordered Results ELECTROLYTES Most recent to 1 oldest [Reference Range]: Sodium Lvl [135-145 138 mEq/L mEq/L] (04/25/16 7:35 PM) Potassium Lvl 4.0 mEq/L [3.5-5.1 mEq/L] (04/25/16 7:35 PM) Chloride Lvl [95-109 103 mEq/L mEq/L] (04/25/16 7:35 PM) CO2 [24-32 mEq/L] 23 mEq/L *LOW* (04/25/16 7:35 PM) AGAP [10.0-20.0 16.0 mEq/L mEq/L] (04/25/16 7:35 PM) CHEM PANEL Most recent to 1 oldest [Reference Range]: Creatinine Lvl 1.10 mg/dL [0.50-1.40 mg/dL] (04/25/16 7:35 PM) eGFR 65 mL/min/1.73m2 1 *NA* (04/25/16 7:35 PM) BUN [7-22 mg/dL] 26 mg/dL *HI* (04/25/16 7:35 PM) Glucose Lvl [70-99 101 mg/dL mg/dL] *HI* (04/25/16 7:35 PM) Uric Acid [3.8-8.0 6.4 mg/dL mg/dL] (04/25/16 7:35 PM) Calcium Lvl 9.9 mg/dL [8.5-10.5 mg/dL] (04/25/16 7:35 PM) 1Result Comment: The eGFR is calculated [...] 1 oldest [Reference Range]: WBC [3.7-10.4 K/CMM] 12.6 K/CMM *HI* (04/25/16 7:35 PM) RBC [4.70-6.10 5.14 M/CMM M/CMM] (04/25/16 7:35 PM) Hgb [14.0-18.0 g/dL] 14.8 g/dL (04/25/16 7:35 PM) Hct [42.0-54.0 %] 44.4 % (04/25/16 7:35 PM) MCV [80.0-94.0 fL] 86.4 fL (04/25/16 7:35 PM) MCH [27.0-31.0 pg] 28.9 pg (04/25/16 7:35 PM) MCHC [32.0-36.0 33.4 g/dL g/dL] (04/25/16 7:35 PM) RDW [11.5-14.5 %] 13.4 % (04/25/16 7:35 PM) Platelet [133-450 182 K/CMM K/CMM] (04/25/16 7:35 PM) MPV [7.4-10.4 fL] 9.7 fL (04/25/16 7:35 PM) Segs [45.0-75.0 %] 80.8 % *HI* (04/25/16 7:35 PM) Lymphocytes 9.6 % [20.0-40.0 %] *LOW* (04/25/16 7:35 PM) Monocytes [2.0-12.0 7.4 % %] (04/25/16 7:35 PM) Eosinophils [0.0-4.0 1.5 % %] (04/25/16 7:35 PM) Basophils [0.0-1.0 0.7 % %] (04/25/16 7:35 PM) Segs-Bands # 10.2 K/CMM [1.5-8.1 K/CMM] *HI* (04/25/16 7:35 PM) Lymphocytes # 1.2 K/CMM [1.0-5.5 K/CMM] (04/25/16 7:35 PM) Monocytes # [0.0-0.8 0.9 K/CMM K/CMM] *HI* (04/25/16 7:35 PM) Eosinophils # 0.2 K/CMM [0.0-0.5 K/CMM] (04/25/16 7:35 PM) Basophils # [0.0-0.2 0.1 K/CMM K/CMM] (04/25/16 7:35 PM) Immunizations Given and Recorded Vaccine Date Status Refusal Reason Hx influenza vaccine-unspecified1 01/17/14 Given influenza virus vaccine, inactivated 01/25/15 Given influenza virus vaccine, inactivated2 01/17/14 Given pneumococcal 23-valent vaccine3 05/25/13 Given tetanus-diphtheria toxoids 11/15/09 Given 1Result Comment: done high dose. Migrated from OBS ; Data migrated from [employer] on 06/06/2015. 2Result Comment: fluzone high dose [[id number]]. Migrated from OBS ; Data migrated from [employer] on 06/06/2015. 3Result Comment: pneumovax 23 [[id number]]. Migrated from OBS VIS: Pneumovax 23: 02-07-09 ; Data migrated from [employer] on 06/06/2015. Procedures Procedure Date Related Diagnosis Body Site Eye examination1 10/18/15 Eye examination 10/2014 Colonoscopy2 02/26/12 1diabetic retinopathy 2Diverticulosis Social History Social History Type Response Alcohol Past Smoking Status Former smoker; Exposure to Tobacco Smoke None; Cigarette Smoking Last 365 Days No; Reg Smoking Cessation Counseling No Assessment and Plan No data available for this section
--- OUTSIDE RECORDS SUMMARY | 2018-04-16 05:48 | XMS REPORT | Summary of Care ---
Author Organization Unknown Address Unknown Phone Unavailable Encounter TERESA Pederson(KATYA) [id number] Date(s): 09/10/14 - 09/10/14 [facility] [address] [place] [address]- Discharge Diagnosis: Sciatica Discharge Disposition: Home Physician Attending: Carlos Obrien MD Vital Signs Most recent to 1 2 oldest [Reference Range]: Height 165.1 cm (09/10/14 2:09 PM) Temperature Oral 98.5 DegF 98.1 DegF [96.4-99.1 DegF] (09/10/14 5:03 PM) (09/10/14 2:09 PM) Blood Pressure 167/78 mmHg [90-140/60-90 mmHg] *HI* (09/10/14 2:09 PM) Respiratory Rate 18 BRMIN 18 BRMIN [14-20 BRMIN] (09/10/14 5:03 PM) (09/10/14 2:09 PM) Peripheral Pulse 73 bpm 98 bpm Rate [60-100 bpm] (09/10/14 5:03 PM) (09/10/14 2:09 PM) Weight 78.636 kg (09/10/14 2:09 PM) Body Mass Index 28.85 m2 (09/10/14 2:09 PM) Problem List Condition Effective Dates Status Health Status Informant Hypertension(Confirm Resolved ed) Allergies, Adverse Reactions, Alerts Substance Reaction Severity Status NKDA Active Medications tramadol 50 mg oral tablet 50 mg=1 tab, PO, Q6H, PRN Pain, X 10 day, # 40 tab, 0 Refill(s) Start Date: 09/10/14 Stop Date: 09/20/14 Status: Ordered Results No data available for this section Immunizations Vaccine Date Refusal Reason tetanus-diphtheria toxoids 11/15/09 Procedures No data available for this section Social History Social History Type Response Smoking Status Former smoker; Exposure to Tobacco Smoke None; Cigarette Smoking Last 365 Days No; Reg Smoking Cessation Counseling No Assessment and Plan No data available for this section
[2018-04-16 09:50] VITALS: BP 115/68
== END | disposition home or self-care (01) ==
LOC: OR 05:45
PROVIDERS: ATTEND Ophthalmology
DX: H25.11 Age-related nuclear cataract, right eye (principal); E11.9 Type 2 diabetes mellitus without complications; I10 Essential (primary) hypertension; Z01.810 Encounter for preprocedural cardiovascular examination; Z01.812 Encounter for preprocedural laboratory examination; Z79.82 Long term (current) use of aspirin
CPT/HCPCS: 36415 ×2; 66982; 80048; 82948; 84132; 85025; 93005; J0171; J2001; J2250; J2704; V2632